=== PATIENT | female | born 2000 | race Caucasian/White ===

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

== ENCOUNTER 2023-11-08 05:03 | Emergency (ER) | payer BC, OTHER ==
[2023-11-08 05:10] VITALS: TEMP 98.3; BMI 24.7
[2023-11-08] MEDS ORDERED: ONDANSETRON 4 MG/2 ML VIAL ONE (06:11)
[2023-11-08] MEDS ORDERED: ACETAMINOPHEN INJECTION 100 ML IVPB ONE (06:11)
[2023-11-08] MEDS: SODIUM CHLORIDE 1,000 ML IV STA (06:16)
[2023-11-08] MEDS: ACETAMINOPHEN 1000 MG/100 ML BAG IVPB ONE (06:16)
[2023-11-08] MEDS: ONDANSETRON 4 MG/2 ML VIAL IVPUSH ONE (06:17)
[2023-11-08] MEDS ORDERED: FAMOTIDINE 20 MG/50 ML IVPB 20 MG/50 ML MG IVPB ONE (06:23)
[2023-11-08] MEDS: FAMOTIDINE 20 MG/50 ML IVPB 20 MG/50 ML MG IVPB ONE (06:24)
[2023-11-08 06:47] LABS: HEMOGLOBIN 13.2 GM/dL (10.7-15.3); MCH 28.3 pg (25.7-33.7); MEAN PLT VOLUME 9.2 fl (7.5-11.1); PLATELET COUNT 287 10^3/uL (134-434); RBC 4.65 M/mm3 (3.60-5.2); RDW 12.7 % (11.6-15.6); WHITE BLOOD COUNT 21.6 K/mm3 (4.0-10.0)
[2023-11-08 07:34] LABS: THROAT:GRP A STREP NOT DETECTED (NOTDETECTED)
[2023-11-08 07:42] LABS: POTASSIUM 4.3 mmol/L (3.5-5.1)
[2023-11-08 07:49] LABS: ALBUMIN 3.6 g/dl (3.4-5.0); BLOOD UREA NITROGEN 8.4 mg/dL (7-18); CALCIUM 8.6 mg/dL (8.5-10.1)
[2023-11-08 07:52] LABS: CREATININE 0.7 mg/dL (0.55-1.3)
[2023-11-08 07:54] LABS: BILIRUBIN,TOTAL 0.8 mg/dL (0.2-1); TOT PROT 7.1 g/dl (6.4-8.2)
[2023-11-08 08:41] LABS: EPI CELLS >36 /uL (0-25.1); HYALINE CASTS 1 /uL (0-3.1); PH,URINE 7.5 (5.0-8.0); URINE APPEARANCE CLEAR; URINE BACTERIA 97 /uL (0-1359); URINE BILIRUBIN NEGATIVE (NEGATIVE); URINE COLOR YELLOW; URINE GLUCOSE (UA) NEGATIVE (NEGATIVE); URINE KETONE NEGATIVE (NEGATIVE); URINE LEUK ESTERASE NEGATIVE (NEGATIVE); URINE NITRITE NEGATIVE (NEGATIVE); URINE PROTEIN 2+ (NEGATIVE); URINE RBC 21 /uL (0-23.9); URINE UROBILINOGEN 0.2 mg/dL (0.2-1.0); URINE WBC 22 /uL (0-25.8)
[2023-11-08 08:56] LABS: ANISOCYTOSIS 1+; MACROCYTOSIS 0
[2023-11-08] MEDS ORDERED: KETOROLAC TROMETHAMINE 30 MG/1 ML VIAL ONE (10:52)
[2023-11-08] MEDS: KETOROLAC TROMETHAMINE 30 MG/1 ML VIAL IVPUSH ONE (11:12)
[2023-11-08] MEDS: LACTATED RINGERS SOLUTION 1000 ML INFUS.BAG IV ONE (11:13)
[2023-11-08 11:14] VITALS: BP 90/56; PULSE 77; RESP 15
== END 2023-11-08 13:01 | disposition home or self-care (01) ==
LOC: JER 05:03
PROC: 3E033GC Introduction of Other Therapeutic Substance into Peripheral Vein, Percutaneous Approach (ICD-10-PCS; principal; 2023-11-08)
PROC: 3E033GC Introduction of Other Therapeutic Substance into Peripheral Vein, Percutaneous Approach (ICD-10-PCS; 2023-11-08)
PROC: 3E033NZ Introduction of Analgesics, Hypnotics, Sedatives into Peripheral Vein, Percutaneous Approach (ICD-10-PCS; 2023-11-08)
PROC: 3E0333Z Introduction of Anti-inflammatory into Peripheral Vein, Percutaneous Approach (ICD-10-PCS; 2023-11-08)
DX: R19.7 Diarrhea, unspecified (principal); R55 Syncope and collapse; J02.9 Acute pharyngitis, unspecified; R09.81 Nasal congestion; R50.9 Fever, unspecified; R05.9 Cough, unspecified; H92.09 Otalgia, unspecified ear; Z20.822 Contact with and (suspected) exposure to COVID-19
CPT/HCPCS: 0241U-QW; 36415; 80053; 81003; 84703; 85025; 87086; 87651; 93005; 93010; 99284-25; J0131